=== PATIENT | male | born 1950 | race Caucasian/White ===

== ENCOUNTER 2018-01-04 12:58 | Observation (INO) | payer OTHER ==
[~2018-01-04 12:58] MED LIST: KETOROLAC 30 MG INJ; ROCURONIUM 50 MG INJ
[2018-01-04 13:42] LABS: ADD MAN DIFF? NO
[2018-01-04 13:44] LABS: BASOPHIL # 0.1 10^3/ul (0.0-0.1); BASOPHILS % 0.7 % (0.0-2.0); EOSINOPHILS # 0.4 10^3/ul (0.0-0.5); EOSINOPHILS % 4.9 % (0.0-7.0); HEMATOCRIT 44.2 % (42.0-52.0); HEMOGLOBIN 14.3 g/dl (14.0-18.0); LYMPHOCYTES % 27.6 % (15.0-51.0); MEAN CORPUSCULAR HEMOGLOBIN 29.1 pg (29.0-33.0); MEAN CORPUSCULAR HGB CONC 32.4 g/dl (32.0-37.0); MEAN CORPUSCULAR VOLUME 89.8 fl (82.0-101.0); MEAN PLATELET VOLUME 9.6 fl (7.4-10.4); MONOCYTE # 0.5 10^3/ul (0.3-0.9); MONOCYTES % 7.5 % (0.0-11.0); NEUTROPHIL # 4.2 10^3/ul (1.6-7.5); NEUTROPHILS % 58.6 % (39.0-77.0); PLATELET COUNT 251 10^3/UL (140-415); RED BLOOD COUNT 4.92 10^6/ul (4.70-6.10); RED CELL DISTRIBUTION WIDTH 13.6 % (11.5-14.5)
[2018-01-04 13:44] LABS: WHITE BLOOD COUNT 7.1 10^3/ul (4.8-10.8)
[2018-01-04 14:01] LABS: ANION GAP 11 (5-13); BLOOD UREA NITROGEN 19 mg/dl (7-20); CALCIUM 9.6 mg/dl (8.4-10.2); CARBON DIOXIDE 27 mmol/L (21-31); CHLORIDE 102 mmol/L (97-110); CREATININE 0.95 mg/dl (0.61-1.24); Estimated GFR > 60 mL/min (>60); GLUCOSE 96 mg/dl (70-220); POTASSIUM 4.6 mmol/L (3.5-5.1); SODIUM 140 mmol/L (135-144)
[2018-01-04 14:05] LABS: INR 0.92; PARTIAL THROMBOPLASTIN TIME 28.6 Sec (23.0-35.0); PROTIME 12.4 Sec (11.9-14.9)
[2018-01-04] MEDS ORDERED: NACL 0.9% 3 ML SYG IV (16:30)
[2018-01-04] MEDS ORDERED: OXYCODONE/ACETAMINOPHEN (5/325) TAB PO ×3 (16:30→18:00)
[2018-01-04] MEDS ORDERED: morphine 2 MG INJ IV ×2 (16:30→22:30)
[2018-01-04] MEDS ORDERED: PROVENTIL HFA 6.7GM INHALER INH (17:15)
[2018-01-04] MEDS ORDERED: DIPHENHYDRAMINE 50 MG INJ IV (18:00)
[2018-01-04] MEDS ORDERED: IPRATROPIUM (NEB) 0.5 MG/2.5 ML AMP HHN (18:00)
[2018-01-04] MEDS ORDERED: ALBUTEROL 0.083% (NEB) 2.5 MG/3 ML AMP HHN (18:00)
[2018-01-04] MEDS ORDERED: hydrALAzine 20 MG INJ IV (18:00)
[2018-01-04] MEDS ORDERED: MEPERIDINE 25 MG INJ IV (18:00)
[2018-01-04] MEDS ORDERED: MIDAZOLAM 1 MG/ML 2 ML INJ IV (18:00)
[2018-01-04] MEDS ORDERED: HYDROmorphONE 1 MG/5 ML IV SYRINGE IV ×3 (18:00→22:31)
[2018-01-04] MEDS ORDERED: ONDANSETRON 4 MG INJ IV (18:00)
[2018-01-04] MEDS ORDERED: LABETALOL HCL 20MG INJ IV (18:00)
[2018-01-04] MEDS ORDERED: FENTAnyl 50 MCG/ML VIAL IV ×3 (18:00)
[2018-01-04] MEDS ORDERED: EPHEDrine SULFATE 50 MG/5 ML SYG IV (18:00)
[2018-01-04] MEDS ORDERED: TRIMETHOBENZAMIDE 100 MG/ML VIAL IM (18:00)
[2018-01-04] MEDS ORDERED: ROPIVACAINE 0.5 % 30 ML VIAL (18:04)
[2018-01-04] MEDS ORDERED: BACITRACIN/POLYMYXIN 28.35 GM OINT TOP (18:04)
[2018-01-04] MEDS ORDERED: CEFAZOLIN 1 GM INJ (18:21)
[2018-01-04] MEDS ORDERED: NEOSTIGMINE 3 MG/3 ML SYRINGE (18:21)
[2018-01-04] MEDS ORDERED: GLYCOPYRROLATE 0.4 MG INJ (18:21)
[2018-01-04] MEDS ORDERED: FENTAnyl 50 MCG/ML VIAL ×2 (18:21→21:20)
[2018-01-04] MEDS ORDERED: ONDANSETRON 4 MG INJ ×2 (18:21→22:35)
[2018-01-04] MEDS ORDERED: MIDAZOLAM 1 MG/ML 2 ML INJ ×2 (18:21→21:20)
[2018-01-04] MEDS ORDERED: DEXAMETHASONE 4 MG/ML 1 ML INJ (18:21)
[2018-01-04] MEDS ORDERED: ROCURONIUM 50 MG INJ (18:21)
[2018-01-04] MEDS ORDERED: PROPOFOL 20 ML (18:21)
[2018-01-04] MEDS: POLYMYXIN/BACITRACIN 1L IRRIG IRR (19:24)
[2018-01-04] MEDS: CA CHLORIDE 10% 10 ML SYRINGE (20:24)
[2018-01-04] MEDS: THROMBIN 5000 UNIT VIAL (20:26)
[2018-01-04] MEDS: HYDROmorphONE 1 MG/5 ML IV SYRINGE IV (22:39)
[2018-01-05] MEDS ORDERED: HYDROCODONE/APAP (10/325) TAB PO ×2
[2018-01-05] MEDS: CEFAZOLIN 1 GM/50 ML (PMX) 50 ML IVPB ×2 (02:00→05:57)
[2018-01-05] MEDS: LOSARTAN 50 MG TAB PO (02:00)
[2018-01-05 05:01] LABS: ADD MAN DIFF? NO
[2018-01-05 05:07] LABS: WHITE BLOOD COUNT 6.6 10^3/ul (4.8-10.8)
[2018-01-05 05:07] LABS: BASOPHILS % 0.3 % (0.0-2.0); HEMATOCRIT 39.8 % (42.0-52.0); LYMPHOCYTES # 0.7 10^3/ul (0.8-2.9); LYMPHOCYTES % 10.5 % (15.0-51.0); MEAN CORPUSCULAR HEMOGLOBIN 29.2 pg (29.0-33.0); MEAN CORPUSCULAR HGB CONC 32.7 g/dl (32.0-37.0); MEAN CORPUSCULAR VOLUME 89.4 fl (82.0-101.0); MONOCYTE # 0.1 10^3/ul (0.3-0.9); NEUTROPHIL # 5.7 10^3/ul (1.6-7.5); NEUTROPHILS % 86.6 % (39.0-77.0); PLATELET COUNT 229 10^3/UL (140-415); RED BLOOD COUNT 4.45 10^6/ul (4.70-6.10); RED CELL DISTRIBUTION WIDTH 13.6 % (11.5-14.5)
[2018-01-05 05:47] LABS: ALANINE AMINOTRANSFERASE 26 IU/L (13-69); ALBUMIN 3.9 g/dl (3.3-4.9); ALKALINE PHOSPHATASE 78 IU/L (42-121); ANION GAP 11 (5-13); ASPARTATE AMINO TRANSFERASE 22 IU/L (15-46); BILIRUBIN,INDIRECT 0.8 mg/dl (0-1.1); BILIRUBIN,TOTAL 0.8 mg/dl (0.2-1.3); BLOOD UREA NITROGEN 20 mg/dl (7-20); CALCIUM 8.9 mg/dl (8.4-10.2); CARBON DIOXIDE 27 mmol/L (21-31); CHLORIDE 102 mmol/L (97-110); CREATININE 0.96 mg/dl (0.61-1.24); Estimated GFR > 60 mL/min (>60); GLUCOSE 129 mg/dl (70-220); POTASSIUM 4.4 mmol/L (3.5-5.1); SODIUM 140 mmol/L (135-144); TOTAL PROTEIN 6.5 g/dl (6.1-8.1)
[2018-01-05] MEDS: ONDANSETRON 4 MG TAB PO (10:24)
== END 2018-01-05 11:36 | disposition home or self-care (01) ==
LOC: SDS 23:59 → MS1 23:59 → SDS 12:58
DX: S86.012D Strain of left Achilles tendon, subsequent encounter (principal); S92.062D Displaced intraarticular fracture of left calcaneus, subsequent encounter for fracture with routine healing; X58.XXXD Exposure to other specified factors, subsequent encounter; M71.572 Other bursitis, not elsewhere classified, left ankle and foot; I10 Essential (primary) hypertension; J45.909 Unspecified asthma, uncomplicated
CPT/HCPCS: 27652; 71045; 73600-LT; 80048; 80053; 82306; 85025; 85610; 85730; 88304; 93005; 97161